=== PATIENT | male | born 1945 | race Caucasian/White ===

== ENCOUNTER 2017-09-04 17:43 | Emergency (ER) | payer OTHER ==
[2017-09-04] MEDS: HYDROCODONE/APAP (5/325) TAB PO (18:38)
== END 2017-09-04 21:30 | disposition home or self-care (01) ==
LOC: E/R 21:30
DX: S89.92XA Unspecified injury of left lower leg, initial encounter (principal); J45.909 Unspecified asthma, uncomplicated; I10 Essential (primary) hypertension; E11.9 Type 2 diabetes mellitus without complications; X50.9XXA Other and unspecified overexertion or strenuous movements or postures, initial encounter; Y92.9 Unspecified place or not applicable
CPT/HCPCS: 73610; 73610-RT; 99283-25